=== PATIENT | female | born 1960 | race Hispanic/Latino ===

== ENCOUNTER → 2022-12-17 | Outpatient (CLI) | payer OTHER ==
[~2022-12-17] MED LIST: REGADENOSON 0.4 MG/5 ML PF SYG IVP ONE
== END | disposition home or self-care (01) ==
LOC: SHCH 08:30
PROVIDERS: ATTEND Internal Medicine Cardiovascular Disease
DX: I20.9 Angina pectoris, unspecified (principal)
CPT/HCPCS: 78452; 96374; 93017; J2785; A9500 ×2

== ENCOUNTER → 2023-01-16 | Outpatient (CLI) | payer OTHER | END | disposition home or self-care (01) | LOC: SHCH 08:49 | PROVIDERS: ATTEND Internal Medicine Cardiovascular Disease | DX: I27.0 Primary pulmonary hypertension (principal); E11.9 Type 2 diabetes mellitus without complications; E78.5 Hyperlipidemia, unspecified | CPT/HCPCS: 93306 ==

== ENCOUNTER → 2024-01-22 | Outpatient (CLI) | payer OTHER ==
[2024-01-22 11:10] LABS: CREATININE 0.6 mg/dL (0.5-1.0); POTASSIUM 4.3 mmol/L (3.5-5.1)
== END | disposition home or self-care (01) ==
LOC: LAB 09:37
PROVIDERS: ATTEND Internal Medicine
DX: D35.02 Benign neoplasm of left adrenal gland (principal)
CPT/HCPCS: 36415; 80048

== ENCOUNTER → 2024-01-26 | Outpatient (CLI) | payer OTHER ==
[~2024-01-26] MED LIST changes: +IOHEXOL 350 MG/ML 100ML INFUS..BTL IV ONE; -REGADENOSON 0.4 MG/5 ML PF SYG IVP ONE
== END | disposition home or self-care (01) ==
LOC: RAH 08:24
PROVIDERS: ATTEND Internal Medicine
DX: D35.02 Benign neoplasm of left adrenal gland (principal); E27.8 Other specified disorders of adrenal gland; M47.815 Spondylosis without myelopathy or radiculopathy, thoracolumbar region; I70.90 Unspecified atherosclerosis; I25.10 Atherosclerotic heart disease of native coronary artery without angina pectoris
CPT/HCPCS: 74170; Q9967

== ENCOUNTER → 2025-06-22 | Outpatient (CLI) | payer OTHER ==
--- NOTE | 2025-06-23 10:15 | HMCIMG ---
EXAM: CT Abdomen with and without IV contrast CLINICAL HISTORY: Benign neoplasm of left adrenal gland TECHNIQUE: Axial computed tomography images of the abdomen and pelvis with and without intravenous contrast. CONTRAST: with and without intravenous contrast. COMPARISON: None provided. FINDINGS: Lung Bases: Few basal atelectatic changes are seen in the right visualized middle lobe and inferior lingular segment of the left upper lobe in the visualized lung bases. Liver: Liver is enlarged, measuring 14.9 cm (borderline hepatomegaly). Diffuse fatty attenuation of the liver is seen. No focal hepatic lesions are identified. Intrahepatic biliary radicles are not dilated. Hepatic vasculature is unremarkable. Gallbladder: Post-cholecystectomy status. No pericholecystic collection is seen. Pancreas: Pancreas is normal in size, contour, and attenuation. No focal lesion or peripancreatic collection is seen. Pancreatic duct is not dilated. Spleen: Spleen is normal in size and attenuation. No focal splenic lesion is seen. Adrenal Glands: There is a well-defined round hypodense lesion along the left adrenal gland measuring approximately 2.8 x 2.5 x 2.6 cm. On plain scan, the attenuation of the lesion is 18???20 HU. On contrast, the attenuation is 40???50 HU. On 15-minute delayed scan, the attenuation is 25???30 HU. No abnormality is seen in the right adrenal gland. Adrenal Lesion Washout Calculations: Using average values: Unenhanced HU: 19 Enhanced HU: 45 Delayed HU: 27.5 Absolute washout = (45 ??? 27.5) / (45 ??? 19) x 100 = (17.5 / 26) x 100 ? 67.3% Relative washout = (45 ??? 27.5) / 45 x 100 = (17.5 / 45) x 100 ? 39% Kidneys: Bilateral cortical margins appear mildly irregular with perinephric fat stranding, suggestive of likely renal parenchymal disease. A tiny simple renal cortical cyst is seen in the midpole of the left kidney, measuring 8 x 8 mm. No renal calculi or hydronephrosis are seen. No focal mass lesion is identified in either kidney. Stomach and Bowel: Stomach and visualized bowel loops are normal in caliber and wall thickness. No evidence of obstruction or mass lesion. Peritoneum: No free fluid or peritoneal thickening is seen. No evidence of peritoneal deposits. Lymph Nodes: No significant abdominopelvic lymphadenopathy is seen. Vasculature: Major abdominal vessels, including the aorta and its branches, the portal vein, hepatic veins, and the IVC, are normal in course and caliber. No evidence of aneurysm, thrombosis, or abnormal enhancement. Bones: Mild degenerative changes are noted in the visualized spine. No lytic or sclerotic lesions are seen. No evidence of fracture or destructive bony lesion. IMPRESSION: 1. Left adrenal mass measuring 2.8 x 2.5 x 2.6 cm with washout characteristics suggestive of benign adenoma. 2. Borderline hepatomegaly with diffuse fatty infiltration. 3. Post-cholecystectomy status. 4. Mild renal parenchymal disease with perinephric fat stranding. 5. Small left renal cortical cyst. /Efe
== END | disposition home or self-care (01) ==
LOC: RAH 07:32
PROVIDERS: ATTEND Internal Medicine
DX: K76.0 Fatty (change of) liver, not elsewhere classified (principal); D35.02 Benign neoplasm of left adrenal gland; N28.1 Cyst of kidney, acquired; M47.816 Spondylosis without myelopathy or radiculopathy, lumbar region; K91.5 Postcholecystectomy syndrome; Z90.49 Acquired absence of other specified parts of digestive tract
CPT/HCPCS: 74170; Q9967